=== PATIENT | male | born 1995 | race Caucasian/White ===

== ENCOUNTER 2019-02-18 00:27 | Emergency (ER) | payer SELFPAY ==
[~2019-02-18] VITALS: Ht 198.1 cm; Wt 99.8 kg
--- NOTE | 2019-02-18 00:30 | NUR ---
Crutches dispensed. Pt instructed on proper use of crutches. Patient able to demonstrate correct use of crutches.
--- NOTE | 2019-02-18 01:30 | NUR ---
Patient discharged to home in stable conditon WITH FRIENDS TAKING PATIENT HOME. Written and verbal after care instructions given. Patient verbalizes understanding of instructions.
[2019-02-18 01:31] VITALS: BP 120/75
== END 2019-02-18 01:40 | disposition home or self-care (01) ==
LOC: ER 00:30
DX: S93.402A Sprain of unspecified ligament of left ankle, initial encounter (principal); X50.1XXA Overexertion from prolonged static or awkward postures, initial encounter; Y93.66 Activity, soccer; Y92.89 Other specified places as the place of occurrence of the external cause; Y99.8 Other external cause status
CPT/HCPCS: 73610; A4663